=== PATIENT | male | born 1955 | race Two or more races ===

== ENCOUNTER 2017-08-29 07:37 | Day surgery (SDC) | payer MEDICARE, OTHER ==
--- NOTE | 2017-08-26 09:54 | Pre-Procedure Note/Attestation ---
Pre-Procedure Note/Attestation Complete Prior to Procedure Planned Procedure: left Procedure Narrative: phaco with IOL Indications for Procedure Pre-Operative Diagnosis: cataract Attestation I attest that I discussed the nature of the procedure; its benefits; risks and complications; and alternatives (and the risks and benefits of such alternatives ), prior to the procedure, with the patient (or the patient's legal access services representative). I attest that, if there was a reasonable possibility of needing a blood transfusion, the patient (or the patient's legal access services representative) was given the [facility] standardized written summary, pursuant to the [place] Blood Safety Act ([place] Health and Safety Code # 1645, as amended). I attest that I re-evaluated the patient just prior to the surgery and that there has been no change in the patient's H&P, except as documented below: MARY OLVERA Aug 26, 2017 09:54
--- NOTE | 2017-08-26 10:00 | Opthalmology H&P ---
Ophthalmology H&P H&P Chief Complaint: decreased vision in left eye HPI Vision Affects Ability to: read, focus/use eyes together, manage personal affairs HPI Narrative blurry vision Exam Visual Acuity: OD: 20/30 OS: 20/125 Tension: OD: 14 OS: 14 Eye Exam: normal OU: external exam, palpebral fissure-width, marginal reflex distance, levator function, corneas, anterior chambers; findings: lens - OD: cortical OS: cortical, fundus exam - NPDR OU Assessment/Plan Diagnosis: (1) Cortical age-related cataract, left eye Treatment Plan: cataract extraction w/ lens implant Goals of Treatment: improvement of vision, enhance quality of life Attestation Attestation The risks and benefits of the surgery as well as alternative procedures were explained to the patient in detail. MARY OLVERA Aug 26, 2017 10:00
[2017-08-26 10:01] LABS: BASOPHILS % (AUTO) 1.6 % (0.0-2.0); EOSINOPHILS % (AUTO) 2.3 % (0.0-3.0); HEMATOCRIT 48.2 % (42.0-52.0); HEMOGLOBIN 16.5 G/DL (14.2-18.0); LYMPHOCYTES % (AUTO) 23.3 % (20.0-45.0); MEAN CORPUSCULAR VOLUME 88 FL (80-99); MONOCYTES % (AUTO) 7.7 % (1.0-10.0); NEUTROPHILS % (AUTO) 65.1 % (45.0-75.0); PLATELET COUNT 203 K/UL (150-450); RED BLOOD COUNT 5.46 M/UL (4.70-6.10); RED CELL DISTRIBUTION WIDTH 11.4 % (11.6-14.8); WHITE BLOOD COUNT 6.8 K/UL (4.8-10.8)
[2017-08-26 10:11] LABS: INR 0.9 (0.9-1.1)
[2017-08-26 10:17] LABS: ALANINE AMINOTRANSFERASE 78 U/L (12-78); ALKALINE PHOSPHATASE 130 U/L (46-116); ANION GAP 5 mmol/L (5-15); ASPARTATE AMINO TRANSFERASE 49 U/L (15-37); BILIRUBIN,TOTAL 0.7 MG/DL (0.2-1.0); BLOOD UREA NITROGEN 19 mg/dL (7-18); CALCIUM 9.8 MG/DL (8.5-10.1); CARBON DIOXIDE 28 MMOL/L (21-32); CHLORIDE 104 MMOL/L (98-107); POTASSIUM 4.2 MMOL/L (3.5-5.1); SODIUM 137 MMOL/L (136-145)
--- NOTE | 2017-08-26 18:43 | Diagnostic Imaging Report ---
Indication: Cough Technique: XRAY Chest 2v Comparison: None Findings: Heart size and mediastinal contours are within normal limits. Atherosclerotic calcifications noted in the aorta. There is no focal airspace consolidation, pleural effusion or pneumothorax. There is degenerative change of the spine. No acute osseous abnormality seen. Impression: No radiographic evidence of acute cardiopulmonary disease.
[~2017-08-29] VITALS: Ht 165.1 cm; Wt 103.4 kg
[2017-08-29] VITALS (9 sets, daily range): BP systolic 118–158; BP diastolic 77–92
[~2017-08-29 07:37] MED LIST: Akten 3.5% 1ml Btl LEFT EYE ONE; Proparacaine 0.5% Opth Soln 15ml LEFT EYE ONE; Tetracaine 0.5% Opth 4ml Soln LEFT EYE ONE
[2017-08-29] MEDS ORDERED: LR 1000ml 1,000 ML IVLG SCH (11:46)
[2017-08-29] MEDS: Tropicamide 1% Opth 15ml Soln LEFT EYE SCH ×3 (11:47→12:04)
[2017-08-29] MEDS: Cyclopentolate 1% Opth Sol 2ml LEFT EYE SCH ×3 (11:47→12:04)
[2017-08-29] MEDS: Phenylephrine 10% Opth Soln 5ml LEFT EYE SCH ×3 (11:47→12:05)
[2017-08-29] MEDS: Diclofenac Sod 0.1% Op Soln LEFT EYE SCH ×3 (11:47→12:05)
[2017-08-29] MEDS: Tobramycin Op Soln 0.3% 5ml LEFT EYE SCH ×3 (11:48→12:05)
[2017-08-29] MEDS ORDERED: fentaNYL 100 mcg/2 mL IV PRN (12:00)
[2017-08-29] MEDS ORDERED: Atropine Inj 1mg/10ml Syr IV PRN (12:00)
[2017-08-29] MEDS ORDERED: DiphenhydrAMINE 50mg/ml Inj IVP PRN (12:00)
[2017-08-29] MEDS ORDERED: Norco 5mg/325mg tab ORAL PRN (12:00)
[2017-08-29] MEDS ORDERED: HYDROcodone/Acetamin 7.5/325 tab ORAL PRN (12:00)
[2017-08-29] MEDS ORDERED: Midazolam 2mg/2ml Inj IVP PRN (12:00)
[2017-08-29] MEDS ORDERED: Labetalol 5mg/ml 20ml vial IV PRN (12:00)
[2017-08-29] MEDS ORDERED: Ketorolac 30mg Inj IV PRN ×2 (12:00)
[2017-08-29] MEDS ORDERED: Hydromorphone 0.5mg/0.5ml inj IVP PRN (12:00)
[2017-08-29] MEDS ORDERED: oxyCODONE HCL/Acetaminophen 5/325mg ORAL PRN (12:00)
[2017-08-29] MEDS ORDERED: LORazepam Inj 2mg/ml 1ml IV PRN (12:00)
[2017-08-29] MEDS ORDERED: ZANTAC150 MG ORAL (12:27)
[2017-08-29] MEDS ORDERED: METFORMIN HCL1000 M1 ORAL (12:27)
[2017-08-29] MEDS ORDERED: GLIMEPIRIDE1 MG ORAL (12:29)
[2017-08-29] MEDS ORDERED: TRIAMTERENE-HC1 EAC7 ORAL (12:29)
[2017-08-29] MEDS ORDERED: ASPIR 8181 MG ORAL (12:30)
[2017-08-29] MEDS ORDERED: JANUVIA25 MG ORAL (12:30)
[2017-08-29] MEDS ORDERED: SIMVASTATIN40 MG ORAL (12:31)
[2017-08-29] MEDS ORDERED: LANTUS SOL100 UNIT/1 SUBQ (12:31)
[2017-08-29] MEDS ORDERED: BSS 15ml BTL ONE (12:32)
[2017-08-29] MEDS ORDERED: EPINEPHrine 1mg/1ml Amp ONE (12:32)
[2017-08-29] MEDS ORDERED: BSS 500ml btl ONE (12:32)
[2017-08-29] MEDS ORDERED: Sodium Hyaluronate 14 mg/ml 0.85ml ONE (12:33)
[2017-08-29] MEDS ORDERED: Povidone-Iodine 5% opth solution ONE (12:33)
[2017-08-29] MEDS ORDERED: Dexamethasone 4mg/ml vial ONE (12:36)
[2017-08-29] MEDS ORDERED: Pilocarpine 4% Opth 15ml Soln ONE (12:36)
--- NOTE | 2017-08-29 12:55 | Anethesia Preoperative Eval ---
Anesthesia Pre-op PMH/ROS General Date of Evaluation: Aug 29, 2017 Anesthesiologist: Jori ASA Score: ASA 2 Mallampati Score Class I : Soft palate, uvula, fauces, pillars visible Class II: Soft palate, uvula, fauces visible Class III: Soft palate, base of uvula visible Class IV: Only hard plate visible Mallampati Classification: Class III Surgeon: Darlene Diagnosis: Left cataract Surgical Procedure: Left cataract extraction with IOL Anesthesia History: none Family History: no anesthesia problems Allergies: Coded Allergies: No Known Allergies (Unverified , 07/21/17) Medications: see eMAR Past Medical History Cardiovascular: Reports: HTN, other - HLD; Denies: CAD, [place], valve dz, arrhythmia Pulmonary: Denies: asthma, COPD, RADHA, other Gastrointestinal/Genitourinary: Denies: GERD, CRI, ESRD, other Neurologic/Psychiatric: Denies: dementia, CVA, depression/anxiety, TIA, other Endocrine: Reports: DM; Denies: hypothyroidism, steroids, other HEENT: Denies: cataract (L), cataract (R), glaucoma, [place] (L), [place] (R), other Hematology/Immune: Denies: anemia, DVT, bleeding disorder, other Musculoskeletal/Integumentary: Denies: OA, RA, DJD, DDD, edema, other Other: obesity PSxH Narrative: Left TKR Anesthesia Pre-op Phys. Exam Physician Exam Last Vital Signs Date Time Temp Pulse Resp B/P (MAP) Pulse Ox O2 Delivery O2 Flow Rate FiO2 08/29/17 11:57 97.4 86 20 142/90 100 Room Air 97.4 Constitutional: NAD Cardiovascular: RRR Respiratory: CTA Airway Exam Mallampati Score: Class III MO: limited ROM: limited Teeth: intact Anesthesia Pre-op A/P Labs see chart Studies Pre-op Studies: EKG - sr Risk Assessment & Plan Assessment: ASA II Plan: MAC Status Change Before Surgery: No Pre-Antibiotics Drug: N/A MARLENE ART M.D. Aug 29, 2017 12:55
--- NOTE | 2017-08-29 12:56 | Immediate Post-Op Evaluation ---
Immediate Post-Op Evalulation Immediate Post-Op Evalulation Procedure: Left cataract extraction with IOL Date of Evaluation: Aug 29, 2017 Time of Evaluation: 13:38 IV Fluids: 300 Blood Products: 0 Estimated Blood Loss: 0 Urinary Output: 0 Blood Pressure Systolic: 158 Blood Pressure Diastolic: 92 Pulse Rate: 85 Respiratory Rate: 16 O2 Sat by Pulse Oximetry: 100 Temperature (Fahrenheit): 97.2 Pain Score (1-10): 0 Nausea: No Vomiting: No Complications 0 Patient Status: awake, reacts, patent, none Hydration Status: adequate Drug: N/A MARLENE ART M.D. Aug 29, 2017 12:56
--- NOTE | 2017-08-29 12:56 | 48 Hour Post Anesthesia Eval ---
Post Anesthesia Evaluation Procedure: Left cataract extraction with IOL Date of Evaluation: Aug 29, 2017 Airway: patent Nausea: No Vomiting: No Pain Intensity: 0 Hydration Status: adequate Cardiopulmonary Status: at baseline Mental Status/LOC: patient returned to baseline Post-Anesthesia Complications: 0 Follow-up care needed: ready to discharge MARLENE ART M.D. Aug 29, 2017 12:56
[2017-08-29] MEDS ORDERED: Carbachol 0.01% Op Soln 1.5ml vial ONE (13:36)
--- NOTE | 2017-08-30 11:31 | Brief Operative Note ---
Immediate Post Operative Note Operative Note Chief Complaint: blurry vision Pre-op Diagnosis: cataract, OS Procedure: phaco with IOL Post-op Diagnosis: pseudophakia Post-op Diagnosis: same as pre-op Findings: consistent w/pre-op dx studies Surgeon: Darlene Anesthesiologist: Rosalie Anesthesia: MAC Specimen: none Complications: none Condition: stable Fluids: LR Estimated Blood Loss: none Drains: none Implant(s) used?: Yes MARY OLVERA Aug 30, 2017 11:31
--- NOTE | 2017-08-30 11:38 | Operative Note - PDOC ---
Operative Note Operative Note Date of Operation/Procedure: Aug 29, 2017 Chief Complaint: blurry vision Pre-op Diagnosis: cataract, OS Procedure: phaco with IOL Post-op Diagnosis: pseudophakia Post-op Diagnosis: same as pre-op Operative Findings: consistent w/pre-op dx studies Surgeon: Darlene Anesthesiologist: Rosalie Anesthesia: MAC Specimen: none Complications: none Condition: stable Fluids: LR Estimated Blood Loss: none Drains: none Implant(s) used?: Yes Indications for Procedure cataract Description of Procedure This patient has been complaining visually significant cataract in the affected eye with the best corrected visual acuity under moderate glare conditions worse. The patient complains of difficulties with glare in performing activities of daily living and wants to manage personal affairs with comfort and accuracy and see well enough to move with safety at home and outdoors. The risks, benefits and alternatives of the procedure were discussed with the patient in the office prior to scheduling surgery. All questions from the patient were answered after the surgical procedure was explained in detail. The risks of the procedure as explained to the patient include, but are not limited to, pain, infection, bleeding, loss of vision, retinal detachment, need for further surgery, loss of lens nucleus, double vision, etc. Alternative procedures were discussed which include, to do nothing or seek a second opinion. Informed consent for this procedure was obtained from the patient. The patient was referred to a primary care physician for a cardiopulmonary clearance prior to surgery, after proper evaluation was done patient was properly scheduled for outpatient surgery. The patient was brought to the operating room where the anesthesiologist established I.V. lines and cardiac monitoring leads. Mild intravenous sedation was administered. The patient was then prepared with a 5% solution of povidone -iodine to the conjunctival fornix and lashes, and a 5% solution of povidone- iodine to the lids and periorbital skin. The patient was then draped in the usual sterile fashion. A lid speculum was then placed in the operative eye. A keratome blade was then used to create a biplanar incision into the anterior chamber. Viscoelastics was then instilled into the anterior chamber. A capsulorrhexis was then fashioned with an utrata forceps. BSS and a cannula were then used to hydrodissect and hydro delineate the lens. Paracentesis incision was made at 3 o'clock with sharp blade. The phacoemulsification unit, after being properly adjusted and tested, was then used to emulsify the nucleus. The majority of residual cortical material was removed with the I and A unit. Healon was then instilled into the anterior chamber. The corneal wound was then enlarged to the size of the optic with the luanne keratome blade. The intraocular lens was then inspected for right power and size and thought to be satisfactory. Then the lens was gently placed in the capsular bag. Positioning within the capsular bag was confirmed by direct visualization. Optic centration was accomplished with a [place] hook. Viscoelastics was removed from the anterior chamber using the irrigation and aspiration unit. The corneal wound was then tested for leaks and none were found. The lid speculum were then removed. Sponge and needle counts were correct. An eye patch and shield were placed over the operative eye. The patient was taken to the recovery room in stable condition. There were no complications. The patient tolerated the procedure well. The patient was then transferred to the ambulatory surgery unit in stable and satisfactory condition , was given detailed written instructions and asked to follow up in the office the next day. MARY OLVERA M.D. MARY OLVERA Aug 30, 2017 11:38
== END 2017-08-29 15:15 | disposition home or self-care (01) ==
LOC: SUR 07:37
DX: H25.012 Cortical age-related cataract, left eye (principal); I10 Essential (primary) hypertension; E11.9 Type 2 diabetes mellitus without complications; E78.5 Hyperlipidemia, unspecified; E66.01 Morbid (severe) obesity due to excess calories; Z96.652 Presence of left artificial knee joint; Z68.37 Body mass index [BMI] 37.0-37.9, adult
CPT/HCPCS: 36415; 66984; 71046; 80053; 82962; 85025; 85610; 85730; 93005; J0171; J3370